=== PATIENT | male | born 1945 | race Caucasian/White ===

== ENCOUNTER 2020-11-08 13:48 | Emergency (ER) | payer OTHER ==
[2020-11-08] MEDS ORDERED: MORPHINE 4 MG/ML SYR ONE ×2 (18:09→19:32)
[2020-11-08] MEDS ORDERED: ONDANSETRON 4 MG/2 ML VIAL ONE (18:10)
[2020-11-08] MEDS ORDERED: FAMOTIDINE 20 MG/2 ML VIAL IV ONE (18:10)
[2020-11-08] MEDS ORDERED: NA CHLORIDE 0.9% 100 ML ONE (18:10)
[2020-11-08 18:16] LABS: Albumin 4.5 g/dL (3.4-5.0); Bilirubin Direct 3.3 mg/dL (0-0.2); Bilirubin Total 4.9 mg/dL (0.2-1.0); Protein, Total 7.9 g/dL (6.4-8.2)
[2020-11-08 18:21] LABS: Protime INR 1.08
[2020-11-08 18:22] LABS: Magnesium 2.3 mg/dL (1.8-2.4); Potassium 3.4 mmol/L (3.5-5.1)
[2020-11-08 18:38] LABS: Absolute Lymphocytes (CBC) 0.2 K/uL (0.7-4.9); Basophils % 0.1 % (0-1.3); Hematocrit 45.2 % (39.6-49.0); Lymphocytes % 2.6 % (15.3-44.8); MPV 9.1 fL (7.6-11.3); RBC Red Blood Cell Count 4.84 M/uL (4.33-5.43)
--- NOTE | 2020-11-08 18:51 | RAD REPORT ---
EXAM DESCRIPTION: RAD - Chest Single View - 11/08/2020 6:23 pm CLINICAL HISTORY: abdominal pain Chest pain. COMPARISON: No comparisons FINDINGS: Portable technique limits examination quality. Mild interstitial pulmonary edema suspected. The heart is moderately enlarged in size. No displaced f ractures. IMPRESSION: Mild CHF.
--- NOTE | 2020-11-08 18:58 | RAD REPORT ---
EXAM DESCRIPTION: CTAbdomen Pelvis W Contrast - 11/08/2020 6:43 pm CLINICAL HISTORY: Abdominal pain. ABD PAIN COMPARISON: Mri Abdomen W/Wo Cont dated 03/25/2020; Abdomen WWo Cont dated 07/17/2019; Pelvis Wo Cont d ated 06/28/2019 TECHNIQUE: Biphasic CT imaging of the abdomen and pelvis was performed with 100 ml non-ionic IV cont rast. All CT scans are performed using dose optimization technique as appropriate and may include automated exposure control or mA/KV adjustment according to patient size. FINDINGS: The lung bases are clear. The liver contains a 3.9 cm cyst in the superior left lobe. No aggressive liver lesion or biliary dil atation seen. The spleen, adrenal glands and kidneys are within normal limits. Benign left renal cyst s are present. Multiple pancreatic cysts again noted, without significant change since 2019 comparati ve MR study. No bowel obstruction, free air, free fluid or abscess. Diverticulosis is present involving the colon. The appendix is not identified as a discrete structure, however, no secondary findings of appendicit is are identified. No evidence of significant lymphadenopathy. Large fat containing left inguinal h ernia. No suspicious bony findings. IMPRESSION: No acute intra-abdominal or pelvic finding. 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 Large fat containing left inguinal hernia.
[2020-11-08 19:02] LABS: Blood Morphology Comment NOT SEEN (NOT SEEN); Platelet Estimate DECR; White Blood Cell Scan OK (OK)
[2020-11-08] MEDS ORDERED: NA CHLORIDE 0.9% 250 ML ONE (19:32)
[2020-11-08] MEDS ORDERED: KCL 20 MEQ/100 mL IVPB 20 MEQ/100 ML BAG IV ONE (19:33)
--- NOTE | 2020-11-08 19:53 | RAD REPORT ---
EXAM DESCRIPTION: US - Abdomen Exam Limited - 11/08/2020 7:39 pm CLINICAL HISTORY: EPIGASTRIC PAIN COMPARISON: No comparisons FINDINGS: The gallbladder demonstrates no gallstones. No pericholecystic fluid or gallbladder wall t hickening. The common bile duct is normal measuring 3 mm. The liver demonstrates no findings of intrahepatic biliary dilatation. IMPRESSION: Unremarkable examination.
--- NOTE | 2020-11-08 20:42 | ER ---
Nurse's Notes [facility] Name: Ethan Wilhelm Age: 75 yrs Sex: Male : 1945 Arrival Date: 11/08/2020 Time: 13:49 Bed 20 Private MD: Diagnosis: Acute pancreatitis Presentation: 11/08 15:28 Chief complaint: Patient states: Nausea, vomiting, and abdominal pain starting at kg 01:00. Pt went to see his PCP Dr. Lynn at the [facility] and was told to come to the ER. Pt stated that he has a pancreatic cyst and they're concerned about it. Coronavirus screen: Client denies travel out of the [place] in the last 14 days. At this time, unable to obtain information related to travel outside the [place] Client presents with at least one sign or symptom that may indicate coronavirus-19. Standard/surgical mask placed on the client. Provider contacted for isolation considerations. Ebola Screen: Patient negative for fever greater than or equal to 101.5 degrees Fahrenheit, and additional compatible Ebola Virus Disease symptoms Patient denies exposure to infectious person. Patient denies travel to an Ebola-affected area in the 21 days before illness onset. Initial Sepsis Screen: Does the patient meet any 2 criteria? No. Patient's initial sepsis screen is negative. Does the patient have a suspected source of infection? No. Patient's initial sepsis screen is negative. Risk Assessment: Do you want to hurt yourself or someone else? Patient reports no desire to harm self or others. Onset of symptoms was November 08, 2020 at 01:00. 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 - Social history:: Smoking status: Patient denies any tobacco usage or history of. Screenin:33 Abuse screen: Denies threats or abuse. Denies injuries from another. Nutritional kg screening: No deficits noted. Tuberculosis screening: No symptoms or risk factors identified. Fall Risk None identified. No fall in past 12 months (0 pts). No secondary diagnosis (0 pts). No IV (0 pts). Ambulatory Aid- None/Bed Rest/Nurse Assist (0 pts). Gait- Weak (10 pts.). Mental Status- Oriented to own ability (0 pts). Total Lancaster Fall Scale indicates No Risk (0-24 pts). Assessment: 17:30 General: SEE TRIAGE NOTE. bp 18:30 GI: Bowel sounds present X 4 quads. Abd is soft X 4 quads. bp 19:10 General: Appears in no apparent distress. uncomfortable, Behavior is calm, cooperative, rr5 appropriate for age. Pain: Complains of pain in abdomen Pain currently is 10 out of 10 on a pain scale. Quality of pain is described as dull, Pain began gradually, Is intermittent. Neuro: Level of Consciousness is awake, alert, obeys commands, Oriented to person, place, time. Cardiovascular: Capillary refill < 3 seconds Patient's skin is warm and dry. Respiratory: Airway is patent Respiratory effort is even, unlabored, Respiratory pattern is regular, symmetrical. GI: Abdomen is round Abd is soft X 4 quads Reports lower abdominal pain, upper abdominal pain, diarrhea, nausea, vomiting. : No signs and/or symptoms were reported regarding the genitourinary system. EENT: No signs and/or symptoms were reported regarding the EENT system. Derm: Skin is intact, is healthy with good turgor, Skin temperature is warm. Musculoskeletal: Capillary refill < 3 seconds. 19:55 Reassessment: Patient appears in no apparent distress at this time. Patient is alert, rr5 oriented x 3, equal unlabored respirations, skin warm/dry/pink. for transfer to other facility GI consult. 20:30 Reassessment: Patient appears in no apparent distress at this time. Patient is alert, rr5 oriented x 3, equal unlabored respirations, skin warm/dry/pink. 21:46 Reassessment: Patient appears in no apparent distress at this time. Patient is alert, rr5 oriented x 3, equal unlabored respirations, skin warm/dry/pink. awaiting for other facility acceptance. 22:00 Reassessment: Patient appears in no apparent distress at this time. Patient is alert, rr5 oriented x 3, equal unlabored respirations, skin warm/dry/pink. complaint of abdominal pain. ED provider aware with order made and carried out. 23:20 Reassessment: Patient appears in no apparent distress at this time. resting eyes closed rr5 breathing spontaneously with O2 at 2 liters via nasal cannula. 11/09 00:00 Reassessment: Patient appears in no apparent distress at this time. Patient is alert, rr5 oriented x 3, equal unlabored respirations, skin warm/dry/pink. 00:06 Reassessment: report given to mir [facility]. rr5 01:19 Reassessment: Patient appears in no apparent distress at this time. Patient is alert, rr5 oriented x 3, equal unlabored respirations, skin warm/dry/pink. report given to [facility] ambulance. 01:25 Reassessment: prior to transfer patient complaint of abdominal pain, ED provider rr5 informed with order made and carried out. Vital Signs: 11/08 15:28 BP 173 / 80 RA Sitting (auto/lg); Pulse 65; Resp 20; Temp 98.3(O); Pulse Ox 98% on R/A; kg Weight 100.83 kg (M); Height 5 ft. 10 in. (177.80 cm) (M); Pain 10/10; 15:38 BP 147 / 80; Pulse 69; Pulse Ox 98% ; kg 17:26 BP 156 / 89; Pulse 90; Resp 20; Temp 98.5; Pulse Ox 99% on R/A; Weight 99.79 kg; Height em1 5 ft. 10 in. (177.80 cm); Pain 10/10; 18:30 BP 177 / 85; Pulse 83; Resp 16; Pulse Ox 92% ; bp 19:10 BP 161 / 95; Pulse 80; Resp 19; Temp 99.3; Pulse Ox 92% ; rr5 19:43 Pulse Ox 89% on 2 lpm NC; rr5 20:10 Pulse Ox 95% on 2 lpm NC; rr5 20:45 BP 155 / 84; Pulse 86; Resp 16; Pulse Ox 96% on 2 lpm NC; rr5 22:05 BP 164 / 85; Pulse 80; Resp 19; Pulse Ox 97% on 2 lpm NC; rr5 23:00 BP 132 / 78; Pulse 75; Resp 17; Pulse Ox 98% on 2 lpm NC; rr5 11/09 00:30 BP 141 / 70; Pulse 70; Resp 17; Pulse Ox 95% on 2 lpm NC; rr5 01:26 BP 142 / 86; Pulse 86; Resp 19; Pulse Ox 98% on 2 lpm NC; Pain 8/10; rr5 11/08 17:26 Body Mass Index 31.57 (99.79 kg, 177.80 cm) em1 11/08 19:43 hooked to oxygen rr5 ED Course: 13:49 Patient arrived in ED. am2 15:32 Triage completed. kg 15:33 Patient has correct armband on for positive identification. kg 17:21 Jaylen Mckinley PA is PHCP. cp 17:21 Jaylen Phillips MD is Attending Physician. cp 17:28 Adal Larios, RN is Primary Nurse. bp 18:05 Inserted saline lock: 20 gauge in right wrist, using aseptic technique. Blood collected.bp 18:23 XRAY Chest (1 view) In Process Unspecified. EDMS 18:43 CT Abd/Pelvis - IV Contrast Only In Process Unspecified. EDMS 19:30 Arm band placed on right wrist. rr5 19:30 COVID swab sent to lab. rr5 19:38 US Abdomen Limited In Process Unspecified. EDMS 20:04 Primary Nurse role handed off by Adal Larios, RN mw2 20:16 initiated a transfer with the [facility]. They denied due to not them not [facility] accepting new transfers. 20:23 Alpesh Marin, RN is Primary Nurse. rr5 20:40 Initial lab(s) drawn, by me, sent to lab. First set of blood cultures drawn by ma. rr5 20:54 initiated a transfer with Amy Queen from [facility]. mw2 21:27 Connected Jaylen ROBLEDO with the Biliary Doctor from [facility]. mw2 22:09 connected Jaylen ROBLEDO with the Hospitalist from [facility]. mw2 22:34 Amy Queen from [facility] called to inform us that " we will have 2 beds to accommodate the patient, but they are dirty so they will need to wait.". 23:33 administrative approval given by Amy Queen/ patient has been accepted to [address] bed 2415/ Dr. Bullock accepted the patient in transfer/ report to be called to [phone]. 11/09 01:29 No provider procedures requiring assistance completed. Patient transferred, IV remains rr5 in place. intact, No redness/swelling at site. Administered Medications: 11/08 17:45 Drug: Zofran (Ondansetron) 4 mg Route: IVP; Site: right wrist; bp 17:45 Drug: morphine 4 mg Route: IVP; Site: right wrist; bp 17:45 Drug: Pepcid (famotidine) 20 mg Route: IVP; Site: right wrist; bp 19:13 Drug: morphine 4 mg {Note: rass 0.} Route: IVP; Site: right wrist; rr5 19:15 Drug: Potassium Chloride 10 mEq Route: IV; Rate: calculated rate; Site: right wrist; rr5 20:15 Follow up: Response: No adverse reaction; IV Status: Completed infusion; IV Intake: [id number] 22:04 Drug: NS 0.9% 1000 ml Route: IV; Rate: 100 ml/hr; Site: right wrist; rr5 11/09 01:25 Follow up: Response: No adverse reaction; IV Status: Infusion continued upon transfer; rr5 IV Intake: 300ml 11/08 22:04 Drug: Dilaudid (HYDROmorphone) 1 mg {Note: rass 0.} Route: IVP; Site: right wrist; rr5 23:00 Follow up: Response: No adverse reaction; Pain is decreased; RASS: Alert and Calm (0) rr5 11/09 01:22 Drug: Zofran (Ondansetron) 4 mg Route: IVP; Site: right wrist; rr5 01:25 Drug: Dilaudid (HYDROmorphone) 1 mg {Note: daphney 0.} Route: IVP; Site: right wrist; rr5 Intake: 11/08 20:15 IV: 50ml; Total: 50ml. rr5 11/09 01:25 IV: 300ml; Total: 350ml. rr5 Outcome: 11/08 20:42 ER care complete, transfer ordered by MD. chen 11/09 01:29 Transferred by ground EMS to [facility], Transfer form completed. rr5 Condition: stable Instructed on the need for transfer. 01:30 Patient left the ED. rr5 Signatures: Dispatcher [employer] EDClem Patrick em1 Jaylen Mckinley PA PA Maria Dolores Alicia am2 Adal Larios RN RN [place] NessaBrigette mw2 Alpesh Marin RN RN rr5 Kira Ortiz, DONAL RN kg Corrections: (The following items were deleted from the chart) 00:07 00:06 Reassessment: Patient is alert/active/playful, equal unlabored respirations, skin rr5 warm/dry/pink. report given to mir of [facility] rr5
--- NOTE | 2020-11-08 20:42 | EDPHYS ---
Physician Documentation [facility] Name: Ethan Wilhelm Age: 75 yrs Sex: Male : 1945 Arrival Date: 11/08/2020 Time: 13:49 Bed 20 Private MD: ED Physician Jaylen Phillips HPI: 11/08 17:35 This 75 yrs old Male presents to ER via Ambulatory with complaints of cp Abdominal Pain, Nausea/Vomiting/Diarrhea. 17:35 The patient presents with abdominal pain in the epigastric area. Onset: The cp symptoms/episode began/occurred this morning. The symptoms do not radiate. Associated signs and symptoms: Pertinent positives: nausea and vomiting, Pertinent negatives: constipation, diarrhea, dysuria, fever, vomiting blood. The symptoms are described as constant. Severity of pain: in the emergency department the pain is unchanged despite home interventions. 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 - Social history:: Smoking status: Patient denies any tobacco usage or history of. ROS: 17:40 Constitutional: Positive for poor PO intake, Negative for body aches, chills, fever. cp 17:40 Eyes: Negative for injury, pain, redness, and discharge. cp 17:40 ENT: Negative for ear pain, sore throat, difficulty swallowing, difficulty handling secretions. 17:40 Cardiovascular: Negative for chest pain, palpitations. 17:40 Respiratory: Negative for cough, shortness of breath, wheezing. 17:40 Abdomen/GI: Positive for abdominal pain, nausea and vomiting, Negative for diarrhea, constipation, hematemesis, black/tarry stool, rectal bleeding. 17:40 Back: Negative for radiated pain. 17:40 Neuro: Negative for altered mental status, headache, weakness. 17:40 All other systems are negative. Exam: 17:45 Constitutional: The patient appears in no acute distress, alert, awake, cp non-diaphoretic, non-toxic, well developed, well nourished, uncomfortable. 17:45 Head/Face: Normocephalic, atraumatic. cp 17:45 Eyes: Periorbital structures: appear normal, Conjunctiva: normal, no exudate, no injection, Sclera: no appreciated abnormality, Lids and lashes: appear normal, bilaterally. 17:45 ENT: External ear(s): are unremarkable, Nose: is normal, Mouth: Lips: moist, Oral mucosa: moist, Posterior pharynx: Airway: no evidence of obstruction, patent. 17:45 Neck: ROM/movement: is normal, is supple, without pain, no range of motions limitations. 17:45 Chest/axilla: Inspection: normal, Palpation: is normal, no crepitus, no tenderness. 17:45 Cardiovascular: Rate: normal, Rhythm: regular. 17:45 Respiratory: the patient does not display signs of respiratory distress, Respirations: normal, no use of accessory muscles, no retractions, labored breathing, is not present, Breath sounds: are clear throughout, no decreased breath sounds, no stridor, no wheezing. 17:45 Abdomen/GI: Inspection: abdomen appears normal, Bowel sounds: active, all quadrants, Palpation: soft, in all quadrants, severe abdominal tenderness, in the epigastric area, rebound tenderness, is not appreciated, voluntary guarding, is elicited in the epigastric area. 17:45 Back: CVA tenderness, is absent. 17:45 Skin: cellulitis, is not appreciated, no rash present. Vital Signs: 15:28 BP 173 / 80 RA Sitting (auto/lg); Pulse 65; Resp 20; Temp 98.3(O); Pulse Ox 98% on R/A; kg Weight 100.83 kg (M); Height 5 ft. 10 in. (177.80 cm) (M); Pain 10/10; 15:38 BP 147 / 80; Pulse 69; Pulse Ox 98% ; kg 17:26 BP 156 / 89; Pulse 90; Resp 20; Temp 98.5; Pulse Ox 99% on R/A; Weight 99.79 kg; Height em1 5 ft. 10 in. (177.80 cm); Pain 10/10; 18:30 BP 177 / 85; Pulse 83; Resp 16; Pulse Ox 92% ; bp 19:10 BP 161 / 95; Pulse 80; Resp 19; Temp 99.3; Pulse Ox 92% ; rr5 19:43 Pulse Ox 89% on 2 lpm NC; rr5 20:10 Pulse Ox 95% on 2 lpm NC; rr5 20:45 BP 155 / 84; Pulse 86; Resp 16; Pulse Ox 96% on 2 lpm NC; rr5 22:05 BP 164 / 85; Pulse 80; Resp 19; Pulse Ox 97% on 2 lpm NC; rr5 23:00 BP 132 / 78; Pulse 75; Resp 17; Pulse Ox 98% on 2 lpm NC; rr5 11/09 00:30 BP 141 / 70; Pulse 70; Resp 17; Pulse Ox 95% on 2 lpm NC; rr5 01:26 BP 142 / 86; Pulse 86; Resp 19; Pulse Ox 98% on 2 lpm NC; Pain 8/10; rr5 11/08 17:26 Body Mass Index 31.57 (99.79 kg, 177.80 cm) em1 11/08 19:43 hooked to oxygen rr5 MDM: 17:24 Patient medically screened. christian 18:00 Differential diagnosis: cholecystitis, Cholelithiasis, pancreatitis, Peptic Ulcer cp Disease, Perf. Duodenal Ulcer, Perf. Gastric Ulcer, Ureterolithiasis, urinary tract infection. 20:15 Data reviewed: vital signs, nurses notes, lab test result(s), radiologic studies, CT cp scan, ultrasound. 20:50 Physician consultation: was contacted at 20:40, regarding regarding transfer, to [facility]. accepting physician will be DR Ly. 11/08 17:27 Order name: Basic Metabolic Panel; Complete Time: 18:59 11/08 18:59 Interpretation: Normal except: K 3.4; GLUC 179; GFR 70. 11/08 17:27 Order name: CBC with Diff; Complete Time: 19:03 11/08 19:01 Interpretation: Normal except: PLT 100; MIKE% 92.8; LYM% 2.6; LYMA 0.2. 11/08 17:27 Order name: Hepatic Function; Complete Time: 18:59 11/08 19:02 Interpretation: Normal except: AST 471; ALT 562; ALK 180; BILIT 4.9; BILID 3.3. 11/08 17:27 Order name: Lipase; Complete Time: 18:59 11/08 19:02 Interpretation: Abnormal: LIP 38963. 11/08 17:27 Order name: Magnesium; Complete Time: 18:59 11/08 17:27 Order name: PT-INR; Complete Time: 18:59 cp 11/08 19:02 Order name: CBC Smear Scan; Complete Time: 19:03 EDMS 11/08 20:06 Order name: Lactate 11/08 20:06 Order name: Procalcitonin; Complete Time: 21:27 cp 11/08 20:06 Order name: Blood Culture Adult (2) cp 11/08 20:07 Order name: Lactate; Complete Time: 21:27 EDMS 11/08 20:39 Order name: SARS-COV-2 RT PCR; Complete Time: 21:27 EDMS 11/08 17:27 Order name: IV Saline Lock; Complete Time: 17:32 cp 11/08 17:27 Order name: Labs collected and sent; Complete Time: 17:32 cp 11/08 17:27 Order name: XRAY Chest (1 view); Complete Time: 18:59 cp 11/08 18:23 Order name: CT Abd/Pelvis - IV Contrast Only; Complete Time: 18:59 cp 11/08 19:01 Order name: US Abdomen Limited; Complete Time: 20:06 cp 11/08 20:06 Interpretation: Report reviewed. 11/08 19:03 Order name: NPO; Complete Time: 19:13 cp 11/08 20:06 Order name: Oxygen Per Protocol; Complete Time: 20:23 cp Administered Medications: 17:45 Drug: Zofran (Ondansetron) 4 mg Route: IVP; Site: right wrist; bp 17:45 Drug: morphine 4 mg Route: IVP; Site: right wrist; bp 17:45 Drug: Pepcid (famotidine) 20 mg Route: IVP; Site: right wrist; bp 19:13 Drug: morphine 4 mg {Note: rass 0.} Route: IVP; Site: right wrist; rr5 19:15 Drug: Potassium Chloride 10 mEq Route: IV; Rate: calculated rate; Site: right wrist; rr5 20:15 Follow up: Response: No adverse reaction; IV Status: Completed infusion; IV Intake: [id number] 22:04 Drug: NS 0.9% 1000 ml Route: IV; Rate: 100 ml/hr; Site: right wrist; rr5 11/09 01:25 Follow up: Response: No adverse reaction; IV Status: Infusion continued upon transfer; rr5 IV Intake: 300ml 11/08 22:04 Drug: Dilaudid (HYDROmorphone) 1 mg {Note: rass 0.} Route: IVP; Site: right wrist; rr5 23:00 Follow up: Response: No adverse reaction; Pain is decreased; RASS: Alert and Calm (0) rr5 11/09 01:22 Drug: Zofran (Ondansetron) 4 mg Route: IVP; Site: right wrist; rr5 01:25 Drug: Dilaudid (HYDROmorphone) 1 mg {Note: daphney 0.} Route: IVP; Site: right wrist; rr5 Disposition: 21:11 Co-signature as Attending Physician, Jaylen Phillips MD I agree with the assessment and christian plan of care. Disposition: 11/08/20 20:42 Transfer ordered to [facility]. Diagnosis is Acute pancreatitis. - Reason for transfer: Higher level of care. - Accepting physician is DR Ly. - Condition is Stable. - Problem is new. - Symptoms have improved. Signatures: Dispatcher [employer] [facility] Jaylen Phillips MD MD cha Page, Corey, PA PA cp Adal Larios, RN RN bp Alpesh Marin, RN RN rr5 Kira Ortiz, RN RN kg Corrections: (The following items were deleted from the chart) 11/08 19:01 19:00 Normal except: PLT 100; MIKE% 92.8; LYM% 2.6. cp cp 19:42 19:19 CORONAVIRUS+MR.LAB.BRZ ordered. [facility] 22:18 20:42 11/08/2020 20:42 Transfer ordered to [facility]. cp Diagnosis is Acute pancreatitis. Reason for transfer: Higher level of care. Accepting physician is Doctor. Condition is Stable. Problem is new. Symptoms have improved. cp 11/09 01:30 11/08 22:18 11/08/2020 20:42 Transfer ordered to [facility]. rr5 Diagnosis is Acute pancreatitis. Reason for transfer: Higher level of care. Accepting physician is DR Ly. Condition is Stable. Problem is new. Symptoms have improved. cp
[2020-11-08] MEDS ORDERED: HYDROMORPHONE HCL 1 MG/ML INJ ONE (22:15)
[2020-11-08] MEDS ORDERED: NA CHLORIDE 0.9% 1,000 ML ONE (22:15)
[2020-11-09 01:43] VITALS: TEMP 99.3
[2020-11-09] MEDS ORDERED: HYDROMORPHONE HCL 1 MG/ML INJ ONE (01:43)
[2020-11-09] MEDS ORDERED: ONDANSETRON 4 MG/2 ML VIAL ONE (01:43)
[2020-11-09 01:54] VITALS: BP 142/86; O2SAT 98
== END 2020-11-09 01:30 | disposition short-term general hospital (02) ==
LOC: ER 13:48
DX: K85.90 Acute pancreatitis without necrosis or infection, unspecified (principal); Z20.822 Contact with and (suspected) exposure to COVID-19
CPT/HCPCS: 87040 ×2; 85025; 80048; 36415; 83735; 87205; 85610; 80076; 83605; 83690; 84145; 74177; 71045; 76705; U0003; Q9967; J3480; J1170 ×2; J7050; J7030; J2405 ×2; 96361; 96365; 96375; 99285